=== PATIENT | female | born 1955 | race Caucasian/White ===

== ENCOUNTER 2019-09-16 08:41 | Observation (INO) ==
[2019-09-16] MEDS ORDERED: HYDROmorphone 2 MG/1 ML VIAL IV STA (10:14)
[2019-09-16] MEDS ORDERED: ACETAMINOPHEN 325 MG TABLET PO PRN (14:32)
[2019-09-16] MEDS ORDERED: HYDROmorphone 2 MG/1 ML VIAL IV PRN ×2 (14:32→17:10)
[2019-09-16] MEDS ORDERED: ONDANSETRON 4 MG/2 ML VIAL IV PRN (14:32)
[2019-09-16 14:48] LABS: Calcium 8.9 MG/DL (8.5-10.1); Osmolality,Calculated 285.3 MOS/KG (273-304)
[2019-09-16 14:57] LABS: INR 0.9; Partial Thromboplastin Time 22.3 SECS (20.8-36.0)
[2019-09-16 14:59] LABS: Apearance,Urine CLEAR (Clear); Blood, Urine Negative (Negative); Glucose,Urine (UA) Negative (Negative); Ketones,Urine Negative (Negative); Nitrite,Urine Negative (Negative); Protein,Urine Negative; RBC,Urine <1 /HPF (0-4); Squamous Epithelial Cell,Urine Occasional /HPF (0-10); Urine Color Yellow (Yellow); Urine Specific Gravity 1.027 (1.001-1.035)
[2019-09-16 15:00] LABS: Bilirubin,Urine Small mg/dL (Negative)
[2019-09-16] MEDS: SODIUM CHLORIDE 0.9% 1,000 ML IV SCH (15:30)
[2019-09-16] MEDS ORDERED: HYDROmorphone 2 MG/1 ML VIAL IV ONE (17:09)
[2019-09-16] MEDS ORDERED: oxyCODONE/ACETAMINOPHEN 5-325 MG TABLET PO PRN (17:10)
[2019-09-16 18:05] LABS: Basophils % 0.2 % (0.0-0.8); Eosinophils # 0.1 10*3/uL (0.0-0.87); Eosinophils % 1.7 % (0.00-10.9); Hematocrit 36.5 VOL% (35.7-47.0); Immature Granulocytes % 0.5 %; Immature Granulocytes Absolute 0.03 #; Lymphocytes # 1.1 10*3/uL (1.4-4.0); Lymphocytes % 18.9 % (21.3-54.2); Mean Corpuscular HGB Conc 32.9 GM/DL (32-36); Mean Corpuscular Volume 91.9 FL (87-102); Monocytes % 7.1 % (1.7-12.7); Neutrophils % 71.6 % (38.7-73.9); Platelet Count 199 T/CUMM (130-400); Red Blood Count 3.97 MC/CUMM (3.8-5.5); Red Cell Distribution Width 12.4 % (9.3-17.3)
[2019-09-16] MEDS ORDERED: METHOCARBAMOL 500 MG TABLET PO PRN (18:17)
[2019-09-16] MEDS: CHOLECALCIFEROL 1,000 UNIT TABLET PO SCH (22:39)
[2019-09-17] MEDS: SODIUM CHLORIDE 0.9% 1,000 ML IV SCH ×2 (06:11→15:15)
[2019-09-17 08:03] LABS: Calcium 9.1 MG/DL (8.5-10.1); Osmolality,Calculated 282.3 MOS/KG (273-304)
[2019-09-17] MEDS ORDERED: LIDOCAINE 2% 5 ML VIAL ONE ×2 (10:54→12:04)
[2019-09-17] MEDS ORDERED: ceFAZolin 1,000 MG VIAL ONE (11:21)
[2019-09-17] MEDS ORDERED: TISSUE ADHESIVE 1 EACH APPLICATOR TOP ONE (11:31)
[2019-09-17] MEDS ORDERED: PROPOFOL 200 MG/20 ML VIAL IV ONE (12:04)
[2019-09-17] MEDS ORDERED: ONDANSETRON 4 MG/2 ML VIAL ONE (12:05)
[2019-09-17] MEDS ORDERED: fentaNYL 100 MCG/2 ML VIAL ONE ×2 (12:05)
[2019-09-17] MEDS: CHOLECALCIFEROL 1,000 UNIT TABLET PO SCH (20:18)
[2019-09-18] MEDS: SODIUM CHLORIDE 0.9% 1,000 ML IV SCH (03:10)
[2019-09-18 12:13] VITALS: BP 125/85
[2019-09-19] MEDS ORDERED: CHOLECALCIFEROL PO SCH (09:00)
== END 2019-09-18 12:47 | disposition home or self-care (01) ==
LOC: EDUNIT# → EDBD → N.EDINP 08:41 → N.ED 08:41 → SUATTDRO 14:32 → N.2E 15:57
PROVIDERS: ADMIT Internal Medicine; ATTEND Internal Medicine Geriatric Medicine